=== PATIENT | female | born 1965 | race African-American/Black ===

== ENCOUNTER 2020-03-15 00:43 | Emergency (ER) | payer BC, OTHER ==
[2020-03-15 01:04] VITALS: BP 154/86
[2020-03-15] MEDS ORDERED: ONDANSETRON 4 MG ODT TAB PO ONE (01:12)
--- NOTE | 2020-03-15 02:21 | Emergency Department Report ---
ED N/V/D HPI - General Chief complaint: Nausea/Vomiting/Diarrhea Stated complaint: NAUSEA/HEADACHE PUI?: No Source: patient Mode of arrival: Ambulatory Limitations: Language Barrier - History of Present Illness Initial comments: 54-year-old [place] female presents to the emergency room stating that she is feeling very nauseous after consuming a drink of collagen about 1.7 ounces around 10 PM. Patient stated that time she was lightheaded and had a slight headache. Patient also admits to a slight sore throat. Patient denies any fever chills no vomiting no abdominal pain chest pain or shortness of breath. Patient was given Zofran from triage and reports that her nausea has improved and her headache has improved. Patient does have a past medical history of asthma. MD complaint: nausea, other -: Last night Pain Scale: 3 Associated Symptoms: headaches - Related Data Previous Rx's Medication Instructions Recorded Last Taken Type Ondansetron [Zofran ODT TAB] 4 mg PO Q8HR PRN #12 tab.rapdis 03/15/20 Unknown Rx Allergies Allergy/AdvReac Type Severity Reaction Status Date / Time No Known Allergies Allergy Unverified 07/28/14 15:17 ED Review of Systems ROS: Stated complaint: NAUSEA/HEADACHE Other details as noted in HPI Comment: All other systems reviewed and negative ED Past Medical Hx - Past Medical History Previous Medical History?: Yes Hx Asthma: Yes - Surgical History Past Surgical History?: No - Social History Smoking Status: Never Smoker Substance Use Type: None - Medications Home Medications: Home Medications Medication Instructions Recorded Confirmed Last Taken Type Ondansetron [Zofran ODT TAB] 4 mg PO Q8HR PRN #12 tab.rapdis 03/15/20 Unknown Rx ED Physical Exam - General Limitations: Language Barrier General appearance: alert, in no apparent distress - Head Head exam: Present: atraumatic, normocephalic - Eye Eye exam: Present: normal appearance - ENT ENT exam: Present: mucous membranes moist - Neck Neck exam: Present: normal inspection - Respiratory Respiratory exam: Present: normal lung sounds bilaterally. Absent: respiratory distress - Cardiovascular Cardiovascular Exam: Present: regular rate, normal rhythm. Absent: systolic murmur, diastolic murmur, rubs, gallop - GI/Abdominal GI/Abdominal exam: Present: soft, normal bowel sounds - Extremities Exam Extremities exam: Present: normal inspection - Back Exam Back exam: Present: normal inspection - Neurological Exam Neurological exam: Present: alert, oriented X3 - Psychiatric Psychiatric exam: Present: normal affect, normal mood - Skin Skin exam: Present: warm, dry, intact, normal color. Absent: rash ED Course Vital Signs 03/15/20 01:00 Temperature 98.3 F Pulse Rate 87 Respiratory 18 Rate Blood Pressure 154/86 O2 Sat by Pulse 99 Oximetry ED Medical Decision Making - Medical Decision Making 54-year-old [place] female presents to the emergency room stating that she is feeling very nauseous after consuming a drink of collagen about 1.7 ounces around 10 PM. Patient stated that time she was lightheaded and had a slight headache. Patient also admits to a slight sore throat. Patient denies any fever chills no vomiting no abdominal pain chest pain or shortness of breath. Patient was given Zofran from triage and reports that her nausea has improved and her headache has improved. Patient does have a past medical history of asthma. Zofran 4 mg ODT. Patient is able to drink water. Patient be discharged home with a prescription for Zofran and instructed to not take the collagen drink. Critical care attestation.: If time is entered above; I have spent that time in minutes in the direct care of this critically ill patient, excluding procedure time. ED Disposition Clinical Impression: Nausea alone Headache Qualifiers: Headache type: unspecified Headache chronicity pattern: acute headache Intractability: intractable Qualified Code(s): R51 - Headache Disposition: - TO HOME OR SELFCARE Is pt being admited?: No Does the pt Need Aspirin: No Condition: Stable Instructions: Acute Nausea and Vomiting (ED) Additional Instructions: Increase fluid intake advance your diet as tolerated. Take Zofran as needed for nausea Tylenol or ibuprofen as needed for headache. Follow-up with your primary care provider. Prescriptions: Ondansetron [Zofran ODT TAB] 4 mg PO Q8HR PRN #12 tab.rapdis PRN Reason: Nausea
== END 2020-03-15 02:30 | disposition home or self-care (01) ==
LOC: ED 00:43
DX: R51 Headache (principal); R42 Dizziness and giddiness; R11.0 Nausea; J45.909 Unspecified asthma, uncomplicated
CPT/HCPCS: 99282; Q0162